=== PATIENT | female | born 1955 | race Caucasian/White ===

== ENCOUNTER → 2019-11-04 10:45 | Outpatient (CLI) | payer MEDICAID, SELFPAY ==
[2019-10-12 13:03] VITALS: BMI 34.5
--- NOTE | 2019-11-04 10:49 | ECHOD_ITS ---
Reason For Study: CAD Procedure This was a 2D Doppler, Color Flow transthoracic echocardiogram. Exam performed in department. Left Ventricle Moderate concentric left ventricular hypertrophy. The estimated ejection fraction is 75 %. Stage 1 diastolic dysfunction. Mid cavitary dynamic gradient 47 mm/Hg. No regional wall motion abnormalities noted. Right Ventricle Normal size and thickness. Normal systolic function. Atria Normal left atrium. Normal right atrium. Normal atrial septum. Mitral Valve The mitral valve is structurally normal. No prolapse or stenosis seen. Tricuspid Valve Normal tricuspid valve. Trivial tricuspid valve insufficiency. Right ventricular systolic pressure estimated to be 29 mmHg. Aortic Valve Normal aortic valve. Trisinus/trileaflet aortic valve. Pulmonic Valve Normal pulmonic valve. Great Vessels Normal aortic root. Normal arch. Normal inferior vena cava. Inferior vena cava collapse with sniff. Pericardium/Pleural No pericardial effusion. MMode/2D Measurements & Calculations LVIDd: 3.7 cm IVSd: 1.4 cm Ao root diam: 2.7 cm LVIDs: 2.0 cm LVPWd: 0.92 cm RVDd: 2.8 cm FS: 47.3 % LAV(MOD-bp): 33.2 ml LA A4 area: 14.7 cm2 LA dimension(2D): 3.8 cm LAV(MOD-bp) Indexed: 17.1 ml/m2 LAV(MOD-sp2): 31.9 ml LAV(MOD-sp4): 33.6 ml RA A4 area: 10.0 cm2 Doppler Measurements & Calculations MV E max guillermo: 45.4 cm/sec Lat Peak E' Guillermo: 6.1 cm/sec Med Peak E' Guillermo: 3.2 cm/sec MV A max guillermo: 104.2 cm/sec E/E' lat: 7.4 E/E' med: 14.0 MV E/A: 0.44 Ao V2 max: 161.6 cm/sec LV V1 max: 130.2 cm/sec PA V2 max: 161.6 cm/sec Ao max P.4 mmHg LV V1 max P.8 mmHg TR max guillermo: 243.5 cm/sec TR max P.7 mmHg Interpretation Summary Moderate concentric left ventricular hypertrophy. The estimated ejection fraction is 75 %. Stage 1 diastolic dysfunction. Mid cavitary dynamic gradient 47 mm/Hg. Apical cavitary gradient of 60 mm Hg. Trivial tricuspid valve insufficiency. Right ventricular systolic pressure estimated to be 29 mmHg. There is no comparison study available. Ordering Physician: Francesco Carrillo Referring Physician: Yashira Antoine Performed By: Jada Eugene RDCS
== END ==
PROVIDERS: PCP Family Medicine; Referring Provider Internal Medicine Cardiovascular Disease; Visit Provider Internal Medicine Cardiovascular Disease
DX: I25.10 Atherosclerotic heart disease of native coronary artery without angina pectoris (principal); I42.2 Other hypertrophic cardiomyopathy; R60.0 Localized edema; I10 Essential (primary) hypertension; I47.1 Supraventricular tachycardia; Z95.5 Presence of coronary angioplasty implant and graft
CPT/HCPCS: 93306

== ENCOUNTER → 2019-11-11 12:17 | Outpatient (CLI) | payer MEDICAID, SELFPAY ==
[2019-10-12 13:03] VITALS: BMI 34.5
--- NOTE | 2019-11-11 12:18 | STEWCON_ITS ---
Reason For Study: CHEST PAIN, DYSPNEA Stress Results Protocol: Dobutamine Stress Echo With Definiity Maximum Predicted HR: 158 bpm Target HR: 134 bpm % Maximum Predicted HR: 94 % DurationHeart Rate Stage (mm:ss) (bpm) BP Dose Comment BASELINE 68 172/95 STAGE 1 4:01 85 168/8810.00MANUAL BPS OBTAINED FOR TEST STAGE 2 3:00 121 166/6820.00 STAGE 3 3:00 115 162/7030.00 STAGE 4 1:51 148 / 40.000.5 MG ATROPINE RECOVERY 97 142/88 Stress Duration: 11:52 mm:ss Maximum Stress HR: 148 bpm Baseline Echocardiogram Findings The estimated ejection fraction is 65 %. Stress Echo Wall motion Data Resting WM Intermediate WM Stress WM Resting Wall Motion Wall Motion Stress No regional wall motion No regional wall motion abnormalities noted. abnormalities noted. EKG Data The baseline ECG displays normal sinus rhythm. The patient was titrated from 10 mcg to a maximum of 40 mcg of dobutamine during the stress. The maximum heart rate attained was 151 beats per minute. This was 95% of maximum predicted heart rate. During dobutamine infusion, there were no ST or T wave changes noted to suggest ischemia. No arrhythmias noted. Interpretation Summary The estimated ejection fraction is 65 %. Normal, adequate, dobutamine echocardiogram. Negative for ischemia by EKG and echocardiographic criteria. Patient had nonspecific chest pain symptoms during infusion which is a nonspecific finding given dobutamine. No associated wall motion abnormalities noted. Hypertensive blood pressure response to dobutamine. Test terminated due to attainment of target heart rate and dyspnea. Final LVEF is 75%. Decrease sensitivity due to poor echo windows requiring Definity agent. Patient tolerated procedure well. No complications. The study was technically difficult. Contrast injection was performed. Ordering Physician: Francesco Carrillo Referring Physician: Francesco Carrillo Performed By: Stacie Mittal, ANAMARIA, RVT
== END ==
PROVIDERS: PCP Family Medicine; Referring Provider Internal Medicine Cardiovascular Disease; Visit Provider Internal Medicine Cardiovascular Disease
DX: R07.9 Chest pain, unspecified (principal); I25.10 Atherosclerotic heart disease of native coronary artery without angina pectoris; E78.5 Hyperlipidemia, unspecified; I42.2 Other hypertrophic cardiomyopathy; G47.33 Obstructive sleep apnea (adult) (pediatric); Z95.5 Presence of coronary angioplasty implant and graft
CPT/HCPCS: 93017; 93350; J7040; Q9957; A4216; C8928